=== PATIENT | female | born 1960 | race Caucasian/White ===

== ENCOUNTER 2018-06-14 10:04 | Observation (INO) ==
[~2018-06-14 10:04] MED LIST: Lidocaine 1%/Epinephrine 1:100,000 Inj 50 ML Vial ONE
[2018-06-14] MEDS ORDERED: Chlorhexidine Gluconate 2% 1 Pack (2 Cloths) TOPICAL ONE (10:45)
[2018-06-14] MEDS ORDERED: Sodium Chlor 0.9% Inj 500 ML IV.CONT ONE (10:45)
[2018-06-14] MEDS ORDERED: Metoprolol Tartrate 25 MG Tablet PO ONE (10:45)
[2018-06-14] MEDS ORDERED: Ampicillin/Sulbactam Inj 3 GM in Sodium Chloride 0.9% Inj 100 ML IV.SIG ONE (11:00)
--- NOTE | 2018-06-14 15:01 | MP ---
cc: Jasbir Dejesus MD DATE OF OPERATION: 06/14/2018 SURGEON: Jasbir Dejesus MD PREOPERATIVE DIAGNOSES: 1. Chronic tonsillitis. 2. Adenotonsillar hypertrophy. 3. Nasal airway obstruction. 4. Nasal septal deviation. 5. Hypertrophy of inferior turbinates. POSTOPERATIVE DIAGNOSES: 1. Chronic tonsillitis. 2. Adenotonsillar hypertrophy. 3. Nasal airway obstruction. 4. Nasal septal deviation. 5. Hypertrophy of inferior turbinates. OPERATION PERFORMED: 1. Open repair of nasal septal fracture. 2. Bilateral submucosal resection of inferior turbinates. 3. Adenotonsillectomy. INDICATIONS: Documented in the history and physical. DESCRIPTION OF OPERATION: The patient was taken to OR #2 and placed in the supine position. Following induction of general anesthesia and intubation, the nose was packed bilaterally with cotton pledgets saturated in 0.05% oxymetazoline. The septal mucosa and inferior turbinates were injected with a total of 8 mL of 1% Xylocaine with epinephrine 1:100,000. She was then prepped and draped for surgery. Packing was removed and a hemitransfixion incision was made in the left nasal vestibule. Through this incision, the septal mucosa was elevated bilaterally as far as the junction of the bony cartilaginous septum. This exposed an end-on view of the quadrangular cartilage revealing numerous comminuted fracture segments extending into the airway bilaterally, right side greater than left. A cumulative area of 2 x 2 cm was removed, preserving 1.5 cm dorsal and caudal cartilaginous struts. This was completed. Mucosa was elevated from the bony septum and the maxillary crest and these were removed using Gutierrez-José forceps and a 6 mm Tamia chisel. The incision was then closed with a running suture of 4-0 chromic and the mucosal layers of septum were approximated to each other with a quilting stitch of 4-0 plain gut. The inferior turbinates were then fractured out medially and stab incisions were opened along their inferior surfaces. Through these incisions, the submucosal soft tissue was reduced using a curette and preserving the conchal bone. The incisions were then cauterized using the suction Bovie at 35 de [place] rosa and the remnants of the inferior turbinates were then re-lateralized to the lateral nasal wall. The nose was then packed with Merocel tampons coated in mupirocin ointment. The table was then turned 90 degrees and a shoulder roll and a McIvor mouth gag were put in place. The tonsils were removed using the ArthroCare Coblator technique. Numerous sites of venous bleeding were cauterized using the bipolar and monopolar cautery until hemostasis was complete. Next, the adenoids were removed using the suction Bovie at 45 de la rosa. The stomach was aspirated of several millimeters of cloudy gastric contents using a #18 Sylvester sump NG tube. When this was completed, the mouth gag was removed and the procedure was terminated. The patient was reversed from anesthesia and taken to recovery in good condition. There were no complications. ESTIMATED BLOOD LOSS: 100 mL. MD SANJIV Nascimento/duarte , 02:11 PM , 02:20 PM
--- NOTE | 2018-06-14 16:56 | P.CON ---
History of Present Illness Consult date: 06/14/18 Requesting Physician: Jasbir Dejesus Reason for Consult: Hypertension management Primary Care Provider: Dayami Whitmore MD Chief Complaint: Elevated BP History of Present Illness: This is a 57-year-old female patient with a known medical history of hypertension, hyperlipidemia, CAD with cardiac stent and history of paroxysmal atrial fibrillation who underwent a open repair of nasal septal fracture, bilateral submucosal resection of the inferior turbinates and adenotonsillectomy today 06/14/[address] Dejesus, [facility] was consulted for management of hypertension. Patient states that she follows with Dr. Dimas, has not seen in 3 years, was initially placed on metoprolol for management of a one-time episode of paroxysmal atrial fibrillation as well as CAD and cardiac stent placement. Patient states that the Metoprolol dose has been adjusted over the years secondary to patient loosing weight and not requiring as high a dose. Plavix has also been discontinued and she just takes a daily aspirin. Currently she is prescribed Metoprolol XL 25 mg PO daily. At the present time her BP is with the systolic in the 170's, and HR is in the 50's. Patient does state that she has been feeling somewhat dizzy at times and states that this could be related to a low heart rate. She underwent a cardiac stress test and ECHO three years ago which was reportedly unremarkable per patient report. After assessment this evening it seems that the contributing factors to her mildly elevated BP is likely postoperative pain and receiving IVF. Will continue to monitor overnight and hold metoprolol secondary to bradycardia with addition of PRN antihypertensive as needed. Review of Systems All other systems reviewed negative except as stated in HPI PMFSH - History History Provided By: Patient - Medical History Medical History: Medical History (Last Reviewed 06/14/18 @ 16:55 by Falguni Manning) Afib Arthritis Hypertension Chronic tonsil/adenoid disease - Surgical History Surgical History: Surgical History (Last Reviewed 06/14/18 @ 16:55 by Falguni Manning) History of partial hysterectomy History of phacoemulsification of cataract of both eyes with intraocular lens implantation Hx of cardiac cath Hx of gastric bypass Hx of repair of right rotator cuff Hx of right knee surgery Stented coronary artery - Family History Family History: Family History (Last Updated 06/14/18 @ 17:41 by Falguni Manning) Other Congestive heart disease - Social History I have reviewed the patient's Social History: Yes - Tobacco History Second Hand Smoke Exposure: Yes Tobacco Use In Past 30 Days: No Smoking Status: Never smoker - Alcohol History How Often Do You Have a Drink Containing Alcohol: Monthly or less - Substance Use History Substance History: No History of Abuse - Travel History Recent Travel Out of the Country Within the Last 8 Weeks: No Medications and Allergies Active Medications: Active Medications Hydrocodone Bitart/Acetaminophen (Hycet 325/7.5 Mg Liq) 15 ml PO Q4H PRN PRN Reason: PAIN SCALE 1 TO 10 Lactated Ringer's (Lr 1000 Ml Inj) 1,000 mls @ 30 mls/hr IV.CONT .Q24H ONE Stop: 06/15/18 10:44 Last Infusion: 06/14/18 16:11 Dose: Infused Sodium Chloride (Ns Inj) 500 mls @ 30 mls/hr IV.CONT .[id number] ONE Stop: 06/15/18 03:24 Last Admin: 06/14/18 11:54 Dose: Not Given Lactated Ringer's (Lr 1000 Ml Inj) 1,000 mls @ 80 mls/hr IV.SIG .[id number] HETAL Last Admin: 06/14/18 15:36 Dose: 80 mls/hr Ampicillin Sodium/Sulbactam (Sodium 3 gm/ Sodium Chloride) 100 mls @ 200 mls/ hr IV.SIG Q8H HETAL Morphine Sulfate (Morphine Inj) 2 mg IV.PUSH ONCE PRN PRN Reason: PAIN SCALE 1 TO 10 Stop: 06/14/18 23:59 Ondansetron HCl (Zofran Inj) 4 mg IV.PUSH Q6H PRN PRN Reason: NAUSEA OR VOMITING Allergies Allergy/AdvReac Type Severity Reaction Status Date / Time Sulfa (Sulfonamide Allergy Severe HIVES/ITCHI Verified 06/14/18 11:21 Antibiotics) Home Medications Medication Instructions Recorded Confirmed Type duloxetine [Cymbalta] 30 mg PO DAILY 06/13/18 06/14/18 History estradiol 1 mg PO DAILY 06/13/18 06/14/18 History fluticasone [Allergy Relief 1 spray INTRANASAL DAILY 06/13/18 06/14/18 History (fluticasone)] metoprolol succinate 25 mg PO DAILY 06/13/18 06/14/18 History pravastatin 40 mg PO DAILY 06/13/18 06/14/18 History aspirin [Adult Low Dose Aspirin] 81 mg PO DAILY 06/14/18 06/14/18 History calcium carbonate [Calcium 600] 600 mg PO TID 06/14/18 06/14/18 History Physical Exam Vital signs: Vital Signs 06/14/18 11:34 06/14/18 14:14 06/14/18 14:21 Temperature 98.8 F 97.6 F Pulse Rate 52 L 65 55 L Respiratory Rate 18 14 16 Blood Pressure 163/89 H 132/65 128/72 Pulse Oximetry 100 95 95 06/14/18 14:41 06/14/18 14:45 06/14/18 15:07 Temperature 97.6 F Pulse Rate 51 L 50 L 50 L Respiratory Rate 16 16 16 Blood Pressure 135/69 145/68 H 135/91 H Pulse Oximetry 99 98 98 06/14/18 15:44 06/14/18 15:49 Temperature Pulse Rate Respiratory Rate Blood Pressure Pulse Oximetry 98 100 Intake & Output 06/13/18 06/14/18 06/14/18 18:59 06:59 18:59 Intake Total 2700 / 2700 Output Total 200 / 200 Balance 2500 / 2500 Weight 88.2 kg Intake: IV 1700 / 1700 LR 1000 mL Inj 1,000 ML @ 30 1600 / 1600 mls/hr IV.CONT .Q24H ONE Rx#: [id number] Unasyn Inj 3 GM In NS Inj 100 100 / 100 ML @ 200 mls/hr IV.SIG SAP DATA ANALYST ONE Rx#:[id number] Anesthesia Amount 800 / 800 Other 200 / 200 Output: Estimated Blood Loss 200 / 200 Other: Other Intake Source Saline Solution Date of Last Bowel Movement 06/14/18 Weight On Admission 91 kg Narrative: GENERAL: Well-developed, well-nourished patient in [facility]. SKIN: Warm and dry. No rash. HEAD: Normocephalic. Atraumatic. EYES: Pupils equal and round. No scleral icterus. No injection or drainage. ENT: Postoperative dressing in place with face tent. NECK: Supple. Trachea midline. CARDIOVASCULAR: Regular rate and rhythm. S1, S2 noted. No murmur appreciated. RESPIRATORY: No accessory muscle use. Clear to auscultation. Breath sounds equal bilaterally. GASTROINTESTINAL: Abdomen soft, non-tender, nondistended. Normoactive bowel sounds x4. MUSCULOSKELETAL: No obvious deformities. Extremities without clubbing, cyanosis , or edema. NEUROLOGICAL: Awake and alert. No obvious cranial nerve deficits. Motor grossly within normal limits. 5/5 muscle strength in bilateral upper and lower extremities. Normal speech. PSYCHIATRIC: Appropriate mood and affect; insight and judgment normal. Assessment and Plan - Assessment (1) Hypertension Code(s): I10 - Essential (primary) hypertension Status: Acute - Plan This is a 57-year-old female patient with: Status post open repair of nasal septal fracture and bilateral submucosal resection of inferior turbinates -Management per ENT. -Pain control, Hydrocodone as needed. -Continue Unasyn. Hypertension, uncontrolled History of paroxysmal atrial fibrillation CAD with cardiac stent placement History of hyperlipidemia -On Metoprolol at home. Patient is bradycardic presently. -Will have to hold home Metoprolol, also complains of some intermittent dizziness at home which may be related. -Will add Lisinopril. Clonidine as needed. Monitor BP trends. DVT Prophylaxis: SCDs, chemical prophylaxis per ENT. Thank you for this consult, we will follow with you.
[2018-06-14] MEDS ORDERED: Morphine Sulfate Inj 2 MG/ML Vial IV.PUSH PRN (17:00)
[2018-06-14] MEDS: Acetaminophen-HYDROcodone 325/7.5 Liq 15 ML UDC PO PRN ×2 (17:16→22:07)
[2018-06-14] MEDS: Calcium Carbonate 500 MG Tablet PO SCH (17:33)
[2018-06-14] MEDS: Ampicillin/Sulbactam Inj 3 GM in Sodium Chloride 0.9% Inj 100 ML IV.SIG SCH (22:07)
[2018-06-15] MEDS: Acetaminophen-HYDROcodone 325/7.5 Liq 15 ML UDC PO PRN (04:34)
[2018-06-15] MEDS: Ampicillin/Sulbactam Inj 3 GM in Sodium Chloride 0.9% Inj 100 ML IV.SIG SCH (06:02)
[2018-06-15 06:09] LABS: Baso # (Auto) 0.1 th/mm3 (0.0-0.2); Baso % (Auto) 0.5 % (0.0-2.0); Eos # (Auto) 0.1 th/mm3 (0.0-0.4); Eos % (Auto) 0.9 % (0.0-4.0); Hematocrit 29.3 % (35.0-46.0); Hemoglobin 9.3 gm/dL (11.6-15.3); Lymph # (Auto) 2.2 th/mm3 (1.0-4.8); Lymph % (Auto) 17.2 % (9.0-44.0); Mean Corpuscular HGB Conc 31.8 % (32.0-36.0); Mean Corpuscular Hemoglobin 25.4 pg (27.0-34.0); Mean Corpuscular Volume 79.9 fL (80.0-100.0); Mean Platelet Volume 9.5 fL (7.0-11.0); Mono # (Auto) 1.2 th/mm3 (0.0-0.9); Mono % (Auto) 9.3 % (0.0-8.0); Neut % (Auto) 72.1 % (16.0-70.0); Platelet Count 335 th/mm3 (150-450); Red Blood Count 3.67 mil/mm3 (4.00-5.30); Red Cell Distribution Width 13.9 % (11.6-17.2); White Blood Count 12.6 th/mm3 (4.0-11.0)
[2018-06-15 06:17] LABS: Chloride 106 meq/L (98-107); Potassium 3.7 meq/L (3.5-5.1); Sodium 141 meq/L (136-145)
[2018-06-15 06:20] LABS: Anion Gap 8 meq/L (5-15); Blood Urea Nitrogen 8 mg/dL (7-18); Carbon Dioxide 27.2 meq/L (21.0-32.0); Glucose,Random 119 mg/dL (74-106)
[2018-06-15 06:24] LABS: Glomerular Filtration Rate Greater Than 89 mL/min (>89)
[2018-06-15 08:10] VITALS: BP 103/57; PULSE 62; RESP 16; TEMP 95.3; O2SAT 96
[2018-06-15] MEDS: Calcium Carbonate 500 MG Tablet PO SCH (08:25)
[2018-06-15] MEDS ORDERED: Estradiol 1 MG Tablet PO SCH (09:00)
[2018-06-15] MEDS ORDERED: Lisinopril 10 MG Tablet PO SCH (09:00)
--- NOTE | 2018-06-15 12:47 | ECG ---
Date Performed: 06/14/2018 Time Performed: 11:51:14 PTAGE: 57 years EKG: SINUS BRADYCARDIA MODERATE VOLTAGE CRITERIA FOR LVH, CONSIDER NORMAL VARIANT BORDERLINE ECG PREVIOUS TRACING : 09/03/2009 20.20 DOCTOR: Anthony Dumont Interpretating Date/Time 06/15/2018 12:46:04
[2018-06-15] MEDS ORDERED: Ampicillin/Sulbactam Inj 3 GM in Sodium Chloride 0.9% Inj 100 ML IV.SIG SCH (14:00)
== END 2018-06-15 10:29 | disposition home or self-care (01) ==
LOC: PHSDC 10:04 → HSDI 10:04
PROVIDERS: ADMIT Otolaryngology; ATTEND Otolaryngology